=== PATIENT | male | born 1965 | race Caucasian/White ===

== ENCOUNTER 2016-12-07 18:13 | Emergency (ER) | payer OTHER ==
[2016-12-07 18:35] VITALS: BP 137/71
--- NOTE | 2016-12-07 20:14 | UC ---
Throat Pain/Nasal Chet HPI - HPI Summary HPI Summary: 51 y/o male presents to the urgent care c/o of sore throat with b/l ear pain for the past 10 days. But now his symptoms are getting worse. He states he has mild fever since yesterday and producing green nasal discharge and coughing green phlegm. Patient denies SOB, chest pain, N/V/D. He maggyo reports her grand daughter has been Dx with pharyngitis. - History of Current Complaint Chief Complaint: UCRespiratory Stated Complaint: SORE THROAT, AND EAR ACHE Time Seen by Provider: 12/07/16 19:52 Hx Obtained From: Patient Onset/Duration: Gradual Onset, Lasting Days, Still Present Severity: Moderate Pain Intensity: 5 Pain Scale Used: 0-10 Numeric Cough: Productive - green phlegm Associated Signs & Symptoms: Positive: Dysphagia, Hoarseness, Sinus Discomfort, Nasal Discharge, Fever. Negative: Vomiting, Rash - Epiglottits Risk Factors Epiglottis Risk Factors: Negative - Allergies/Home Medications Allergies/Adverse Reactions: Allergies Allergy/AdvReac Type Severity Reaction Status Date / Time No Known Allergies Allergy Verified 12/07/16 18:34 PMH/Surg Hx/FS Hx/Imm Hx Previously Healthy: Yes Other History Of: Hepatitis C - Surgical History Surgical History: Yes Surgery Procedure, Year, and Place: jesus inside [facility] - - Family History Known Family History: Positive: Diabetes, Other - lung cancer - Social History Occupation: Employed Full-time Lives: With Family Alcohol Use: Occasionally Substance Use Type: Marijuana Substance Use Comment - Amount & Last Used: RARE Smoking Status (MU): Never Smoked Tobacco - Immunization History Most Recent Influenza Vaccination: FALL 2014 Most Recent Tetanus Shot: states up to date Review of Systems Constitutional: Fever Skin: Negative Eyes: Negative ENT: Sore Throat, Ear Ache, Nasal Discharge Respiratory: Cough - with green phlemg Cardiovascular: Negative Gastrointestinal: Negative Genitourinary: Negative Motor: Negative Neurovascular: Negative Musculoskeletal: Negative Neurological: Negative Psychological: Negative All Other Systems Reviewed And Are Negative: Yes Physical Exam Triage Information Reviewed: Yes Appearance: Well-Appearing, No Pain Distress, Well-Nourished, Obese Vital Signs: Initial Vital Signs Temp 98.1 F 12/07/16 18:33 Pulse 74 12/07/16 18:33 Resp 16 12/07/16 18:33 BP 137/71 12/07/16 18:33 Pulse Ox 98 12/07/16 18:33 Vital Signs Reviewed: Yes Eyes: Positive: Conjunctiva Clear ENT: Positive: Pharyngeal erythema - with exudate b/l, Nasal congestion, Nasal drainage, TM red - Left TM w/o light reflex, and red. RT TM unable to observed due to ear impacted with cerumen, Tonsillar swelling, Tonsillar exudate Dental Exam: Normal Neck exam: Normal Neck: Positive: Supple, Tenderness @ - anterior cervical lymph nodes Respiratory Exam: Normal Respiratory: Positive: Chest non-tender, Lungs clear, Normal breath sounds Cardiovascular Exam: Normal Cardiovascular: Positive: RRR, No Murmur, Pulses Normal Abdomen Description: Positive: Nontender, No Organomegaly, Soft Bowel Sounds: Positive: Present Musculoskeletal Exam: Normal Neurological Exam: Normal Psychological Exam: Normal Skin Exam: Normal Throat Pain/Nasal Course/Dx - Course Course Of Treatment: Sore throat with b/l ear pain: Hx obtaines, PE abnormal findings: ENT: Positive: Pharyngeal erythema - with exudate b/l, Tonsillar swelling, Tonsillar exudate, Nasal congestion, Nasal drainage, TM red - Left TM w/o light reflex, and red. RT TM unable to observed due to ear impacted with cerumen,. Rapid strep ordered. Result:negative. Patient Rx Ibuprofen to alleviate symptoms and Amoxicillin 875mg PO for Otitis Media. Patient given intructions on medication understood and agreed - Differential Dx/Diagnosis Differential Diagnosis/HQI/PQRI: Epiglottitis, Laryngitis, Otitis Media, Pharyngitis, Tonsillitis, URI Provider Diagnoses: viral pharyngitis, otitis media Discharge - Discharge Plan Condition: Stable Disposition: HOME Prescriptions: Amoxicillin (*) [Amoxicillin 875 MG (*)] 875 mg PO BID #20 tab Ibuprofen TAB* [Motrin TAB* 600 MG] 600 mg PO Q6H PRN #20 tab PRN Reason: Sore Throat Patient Education Materials: Pharyngitis (ED), Otitis Media (ED) Referrals: Non Staff,Doctor [Primary Care Provider] - [facility] [Outside] Additional Instructions: Please take medications as instructed . Please increase fluid intake and rest. If symptoms worsen please return to the urgent care or call the physician referral to make an appt with a Primary Care Doctor for further evaluation and treatment
[2016-12-07] MEDS ORDERED: Amoxicillin CAP* 500 MG PO ONE (21:06)
[2016-12-07] MEDS ORDERED: Ibuprofen TAB* 400 MG PO ONE (21:08)
== END 2016-12-07 21:18 | disposition home or self-care (01) ==
LOC: UCEAST 18:13
DX: J02.8 Acute pharyngitis due to other specified organisms (principal); H66.90 Otitis media, unspecified, unspecified ear; E66.9 Obesity, unspecified; Z86.19 Personal history of other infectious and parasitic diseases; H61.21 Impacted cerumen, right ear
CPT/HCPCS: 87651; 99212; A9270-GY; G0463

== ENCOUNTER → 2018-03-15 12:50 | Emergency (ER) | payer OTHER ==
[~2018-03-15 12:50] MED LIST: METHOCARBAMOL IVPB ONE; Methocarbamol* 100 MG/ML 10 ML VIAL IV ONE; Morphine INJ* 2 MG/ML 1 ML SYRINGE (TWO MG - NEW SYRINGE VERSION) ONE; Morphine INJ** 4 MG/ML 1 ML CARPUJECT IV ONE; NS 0.9% IVPB ONE; methylPREDNISolone 125 MG* 2 ML VIAL IV ONE; methylPREDNISolone 125 MG* 2 ML VIAL ONE
--- NOTE | 2018-03-15 14:33 | RAD ---
HISTORY: back pain COMPARISONS: None relevant TECHNIQUE: Multiple contiguous axial CT scans were obtained of the lumbar spine without intravenous contrast, with coronal and sagittal multiplanar reformations. FINDINGS: SPINAL CANAL: Evaluation of the central canal is limited on CT technique; however, there is no obvious canalicular mass or epidural hemorrhage. ALIGNMENT: The alignment is normal. VERTEBRAL BODIES: There is mild anterolateral marginal osteophyte formation. JOINTS: There is mild facet osteoarthritis along the lower lumbar spine. MUSCULATURE: Unremarkable INTERVERTEBRAL DISCS: There is diffuse loss of intervertebral disc height throughout the spine. AXIAL IMAGES: T10-T11: There is no osseous neural foraminal narrowing of central canal stenosis. T11-T12: There is no osseous neural foraminal or central canal stenosis. T12-L1: There is no osseous neural foraminal narrowing or central canal stenosis. L1-L2: There is no osseous neural foraminal narrowing or central canal stenosis. L2-L3: There is no osseous neural foraminal narrowing or central canal stenosis. L3-L4: There is no osseous neural foraminal narrowing or central canal stenosis. L4-L5: There is a broad-based central and right lateral recess disc protrusion measuring 0.5 cm in depth. There is moderate right neuroforaminal narrowing. There is no osseous central canal stenosis. L5-S1: There is a broad-based disc bulge. There is no osseous neural foraminal narrowing or central canal stenosis. SOFT TISSUES: The visualized soft tissues of the abdomen are unremarkable. OTHER: There is osteoarthritis of the SI joints bilaterally. IMPRESSION: 1. MILD DEGENERATIVE DISC DISEASE AND OSTEOARTHRITIS. 2. THERE IS A RIGHT-SIDED DISC PROTRUSION AT L4-L5. 3. THERE IS NO OSSEOUS CENTRAL CANAL STENOSIS.
--- NOTE | 2018-03-15 14:37 | ED ---
Back Pain - HPI Summary HPI Summary: 53-year-old male presents with back pain for the past couple months. He states it is gradually getting worse. He states he has numbness and tingling down his right leg. He states he has done PT and an exercise program seemed to help but then the pain got worse the past three months. He states he felt a pop today. He states he tried to contact to get an appointment but was unable to do so. He states he had an MRI a year to that showed splinal stenosis and osteoarthritis. He is taking multiple ibuprofen doses every day. The ibuprofen helps a little bit with pain. No urinary symptoms. He denies any loss of bowel or bladder. No fever. No saddle anesthesia. He states the pain is better when he is moving. - History of Current Complaint Chief Complaint: EDBackInjuryPain Stated Complaint: BACK PAIN Time Seen by Provider: 03/15/18 13:31 Pain Intensity: 10 - Allergies/Home Medications Allergies/Adverse Reactions: Allergies Allergy/AdvReac Type Severity Reaction Status Date / Time No Known Allergies Allergy Verified 03/15/18 13:19 PMH/Surg Hx/FS Hx/Imm Hx Endocrine/Hematology History: Denies: Hx Diabetes, Hx Thyroid Disease Cardiovascular History: Denies: Hx Hypertension Respiratory History: Denies: Hx Asthma, Hx Chronic Obstructive Pulmonary Disease (COPD) GI History: Denies: Hx Ulcer Neurological History: Denies: Other Neuro Impairments/Disorders - DENIES - Surgical History Surgery Procedure, Year, and Place: jesus inside R arm - - Immunization History Immunizations Up to Date: Yes Infectious Disease History: Yes Infectious Disease History: Reports: Hx Hepatitis Denies: Hx Clostridium Difficile, Hx Human Immunodeficiency Virus (HIV), Hx of Known/Suspected MRSA, Hx Shingles, Hx Tuberculosis, Hx Known/Suspected VRE, Hx Known/Suspected VRSA, History Other Infectious Disease, Traveled Outside the [place] in Last 30 Days - Family History Known Family History: Positive: Diabetes, Other - lung cancer - Social History Alcohol Use: Occasionally Substance Use Type: Reports: Marijuana Substance Use Comment - Amount & Last Used: RARE Smoking Status (MU): Never Smoked Tobacco Review of Systems Negative: Fever Negative: Chest Pain Negative: Shortness Of Breath Positive: Myalgia - back pain All Other Systems Reviewed And Are Negative: Yes Physical Exam Triage Information Reviewed: Yes Vital Signs On Initial Exam: Initial Vitals Temp Pulse Resp BP Pulse Ox 98.5 F 72 16 159/101 98 03/15/18 12:53 03/15/18 12:53 03/15/18 12:53 03/15/18 12:53 03/15/18 12:53 Vital Signs Reviewed: Yes Appearance: Positive: Well-Appearing Skin: Positive: Warm, Dry Head/Face: Positive: Normal Head/Face Inspection Eyes: Positive: Normal, Conjunctiva Clear ENT: Positive: Pharynx normal Respiratory/Lung Sounds: Positive: Clear to Auscultation, Breath Sounds Present Cardiovascular: Positive: Normal, RRR Musculoskeletal: Positive: Strength/ROM Intact - back pain, Other - tenderness back, greatest on right side, sensation grossly intact. good leg strength Neurological: Positive: Normal, Reflexes Intact - patella, Normal Gait Psychiatric: Positive: Normal Diagnostics - Vital Signs Vital Signs Temp Pulse Resp BP Pulse Ox 03/15/18 13:56 16 03/15/18 13:55 86 18 136/101 96 03/15/18 12:53 98.5 F 72 16 159/101 98 - Laboratory Lab Statement: Any lab studies that have been ordered have been reviewed, and results considered in the medical decision making process. - CT lumbar CT Interpretation: Positive (See Comments) - IMPRESSION: 1. MILD DEGENERATIVE DISC DISEASE AND OSTEOARTHRITIS. 2. THERE IS A RIGHT-SIDED DISC PROTRUSION AT L4 -L5. 3. THERE IS NO OSSEOUS CENTRAL CANAL STENOSIS. CT Interpretation Completed By: Radiologist Back Pain Course/Dx - Course Course Of Treatment: 53-year-old male presents with back pain for the past couple months. He states it is gradually getting worse. He states he has numbness and tingling down his right leg. He states he has done PT and an exercise program seemed to help but then the pain got worse the past three months. He states he felt a pop today. He states he tried to contact to get an appointment but was unable to do so. He states he had an MRI a year to that showed splinal stenosis and osteoarthritis. He is taking multiple ibuprofen doses every day. The ibuprofen helps a little bit with pain. No urinary symptoms. He denies any loss of bowel or bladder. No fever. No saddle anesthesia. He states the pain is better when he is moving. on exam has tenderness lower back and tenderness right side of back. pos SLR right. neurovascular intact. CT shows disk protrusion right side at L4-L5. discussed with patient that should follow up with neurosurgery. advised about the proper amount of ibuprofen as patient is taking to much. will give pain medication for at night. will give muscle relaxer. told to stretch. patient understand and agrees with plan. - Diagnoses Differential Diagnosis/HQI/PQRI: Positive: Herniated Disc, Strain, Sprain Provider Diagnoses: Back pain Discharge - Sign-Out/Discharge Documenting (check all that apply): Patient Departure - Discharge Plan Condition: Good Disposition: HOME Prescriptions: Cyclobenzaprine TAB* [Flexeril 10 MG TAB*] 10 mg PO TID PRN #21 tab PRN Reason: Pain methylPREDNISolone [Medrol Dosepak 4 MG*] 4 mg PO .SEE JOSE INSTRUCTION #1 packet oxyCODONE TAB* [Roxycodone TAB 5 mg*] 5 mg PO Q6H PRN #20 tab MDD 4 PRN Reason: Pain Patient Education Materials: Back Pain (ED) Referrals: Marc Aviles MD [Primary Care Provider] - Jr Bradford MD [Medical Doctor] - Additional Instructions: Follow directions on package for Medrol pack Take muscle relaxers three times a day, can only take if not operating heavy machinery Use ibuprofen or Tylenol for pain every 6 hours, use oxycodone at night every 6 hours for pain ice/heat area, move as much as possible Follow up with primary within 5 days follow up with neurosurgery Return to ED if develop any new or worsening symptoms - Billing Disposition and Condition Condition: GOOD Disposition: Home
[2018-03-15 15:17] VITALS: BP 144/95
== END | disposition home or self-care (01) ==
LOC: ED 12:50
DX: M54.9 Dorsalgia, unspecified (principal)
CPT/HCPCS: 72131; 96361; 96374; 96375; 99282; J2270; J2800; J2930

== ENCOUNTER 2018-03-16 17:47 | Inpatient (IN) | payer OTHER ==
[2018-03-16] MEDS ORDERED: HYDROmorphone INJ* 2 MG/ML CARPUJECT SYRINGE IV SLOW PU ONE (18:31)
[2018-03-16] MEDS ORDERED: Ketorolac INJ* 30 MG/ML 1 ML VIAL IV PUSH ONE (18:31)
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
[2018-03-16 20:34] LABS: ABS Basophils 0.1 10^3/ul (0-0.2); ABS Eosinophils 0 10^3/ul (0-0.6); ABS Lymphocytes 0.8 10^3/ul (1.0-4.8); ABS Neutrophils 13.8 10^3/ul (1.5-7.7); ABS Nucleated RBC 0 10^3/ul; Eosinophil % 0.1 % (0-6); Hematocrit 42 % (42-52); Hemoglobin 14.5 g/dl (14.0-18.0); Lymphocyte % 5.4 % (25-47); Mean Corpuscular HGB Conc 34 g/dl (31-36); Mean Corpuscular Hemoglobin 30 pg (27-31); Mean Corpuscular Volume 88 fL (80-94); Mean Platelet Volume 7.8 um3 (7.4-10.4); Nucleated Red Blood Cells % 0; Platelet Count 193 10^3/ul (150-450); Red Blood Count 4.82 10^6/ul (4.00-5.40); Red Cell Distribution Width 13 % (10.5-15); White Blood Count 15.8 10^3/ul (3.5-10.8)
[2018-03-16 20:42] LABS: INR 0.89 (0.77-1.02)
[2018-03-16 20:48] LABS: EGFR Non-African American 92.1 (>60)
[2018-03-16 23:09] LABS: Urine Appearance Clear; Urine Blood Negative (Negative); Urine Color Yellow; Urine Ketones Negative (Negative); Urine Protein Negative (Negative); Urine Specific Gravity 1.028 (1.010-1.030); Urine Urobilinogen Negative (Negative)
[2018-03-16] MEDS: HYDROmorphone INJ1* 1 MG/ML SYRINGE IV SLOW PU PRN (23:16)
--- NOTE | 2018-03-16 23:25 | HP ---
CC: Dr. Aviles HISTORY AND PHYSICAL: DATE OF ADMISSION: 03/16/18 PRIMARY CARE PROVIDER: Dr. Aviles CHIEF COMPLAINT: Right buttock and hip pain. HISTORY OF PRESENT ILLNESS: Mr. Jesus is a 53-year-old male who states over the last 2 months he h as had gradually worsening right buttock and lateral hip pain. He was diagnosed with osteoarthritis a nd thought that is what was going on. He states that yesterday, the day before admission he bent ove r to mushroom picker a shovel and felt a sudden and severe pop in his back. He had severe pain and therefore presented to the emergency room. He was treated with antispasmodics, steroids and narcotic pain med ications and with this he was feeling a little bit better, was able to leave the emergency room last evening. He got up this morning to go to work; however, once at work he was only able to stay there for a couple hours. He was having incredibly difficult time walking. The patient denies any weaknes s in his right leg, but does state that his toes and his medial calf feels somewhat tingly. The ashwini ent had a CT scan in the emergency room on 03/15/18 which revealed a right-sided disk protrusion at L 4-5. There was no osseous central canal stenosis noted. In the emergency room today the patient was treated with the piriformis injection. He states that it did help somewhat, however, he was still h aving significant pain. He describes the pain is being a constant severe toothache like pain. He st ates that he also feels throbbing. At times he does have radiation of pain down the leg. PAST MEDICAL HISTORY: 1. Spinal stenosis. 2. History of hepatitis C, status post treatment with interferon and ribavirin PAST SURGICAL HISTORY: Right arm surgery. MEDICATIONS: 1. Oxycodone 5 mg p.o. q.6 hours p.r.n. pain. 2. Medrol Dosepak as directed. 3. Ibuprofen 600 mg p.o. q.6 hours p.r.n. pain. 4. Flexeril 10 mg p.o. t.i.d. p.r.n. spasm. ALLERGIES: No known drug allergies. FAMILY HISTORY: Mom at the age of 67 of lung cancer. Dad is living, he is 74 and has coronary disease. SOCIAL HISTORY: The patient is a distant former smoker. He drinks alcohol rarely. He works on heavy equipment doing construction. He is . He has 2 children. He indicates that his , Desiree , is his healthcare proxy. REVIEW OF SYSTEMS: A complete 11-system review of systems is obtained. Pertinent positives and nega tives as per HPI and otherwise negative. PHYSICAL EXAMINATION GENERAL: The patient is a well-developed, middle aged male, seen lying in a stretcher, in no acute d istress. VITAL SIGNS: Blood pressure 129/79, pulse 62, respirations 18, temp 97.8, O2 sat 97% on room air. HEENT: Pupils are equal and round. Extraocular muscles are intact. Oropharynx is clear. Oral muco sa is moist. There is no submandibular, cervical, or supraclavicular adenopathy. Thyroid is not enl arged. No thyroid nodules noted. PULMONARY: Lungs are clear to auscultation bilaterally. CARDIAC: Normal S1, S2. Regular rate and rhythm. I do not appreciate any murmurs. ABDOMEN: Bowel sounds are present. Abdomen is soft, nontender, nondistended. MUSCULOSKELETAL: There is no cyanosis or clubbing of the digits. There is full active range of william on of all 4 extremities. NEURO: Cranial nerves II through XII are grossly intact. Sensation is intact to light touch through out. Strength is 5/5 and symmetric both upper and lower extremities bilaterally. PSYCH: The patient is alert. He is oriented x3. Affect appears appropriate. SKIN: Warm and dry. There are no rashes. LABORATORY STUDIES: WBC 15.8, hemoglobin 14.5, hematocrit 42, platelets 193, INR 0.89. Sodium 137, potassium 4.5, chloride 107, CO2 26. BUN 24, creatinine 0.87, glucose 119, calcium 8.9. ASSESSMENT AND PLAN: Mr. Jesus is a 53-year-old male who is identified to have L4-[address] n on CT of the lumbar spine today prior to admission who returns to the emergency room with complaint s of intractable pain. 1. Intractable pain. The patient did receive the piriforms injection by Dr. Collier in the emergenc y room. We will continue p.r.n. Dilaudid, Flexeril and ketorolac for pain control. My hope is that the patient's pain will be able to be brought under control and then he could be transitioned over to an oral regimen. I will start the Medrol Dosepak as of tomorrow. Dr. Collier spoke with neurosurge alondra CLINE, who recommended noncontrast MRI tomorrow. This has been ordered, however, MRI staff will like ly need to be called in for this. 2. DVT prophylaxis. According to the Adult Thrombosis Prophylaxis Risk Factor Assessment Guide, the patient had a total risk factor score of 2, making him at risk. Heparin 5000 units subcutaneous q.1 2 hours will be utilized as DVT prophylaxis. 3. Code status is full. TIME SPENT: Fifty five minutes was spent admitting this patient. [id number]/CPS #: [id number]
--- NOTE | 2018-03-17 00:09 | RAD ---
EXAM: MR Lumbar Spine Without Intravenous Contrast CLINICAL HISTORY: 53 years old, male; Pain; Low back pain; Patient HX: Pt had intermittent lower back pain since yesterday when bending over to tow picker a shovel. Pt unable to walk without pain. Pt denies loss of bowel or bladder control TECHNIQUE: Magnetic resonance images of the lumbar spine without intravenous contrast in multiple planes. COMPARISON: SP L WO CT SPINE LUMBAR W/O 03/15/2018 2:23 PM FINDINGS: Vertebrae: Unremarkable. No acute fracture. Spinal cord: Unremarkable. Normal signal. Soft tissues: Cysts in the left kidney largest one is measuring 20 mm. DISCS/SPINAL CANAL/NEURAL FORAMINA: L1-L2: Unremarkable. No significant disc disease. No stenosis. L2-L3: Unremarkable. No significant disc disease. No stenosis. L3-L4: Mild diffuse disc bulge without significant central spinal canal stenosis or neural foraminal narrowing. Bilateral facet joint arthropathy and ligamentum flavum hypertrophy. L4-L5: Diffuse disc bulge with mild central and moderate right paracentral disc protrusion causing moderate right lateral recess narrowing with abutment of the traversing right L5 nerve roots in the lateral recess, moderate right neural foraminal narrowing and mild left neural foraminal narrowing. Bilateral facet joint arthropathy and ligamentum flavum hypertrophy. L5-S1: Mild diffuse disc bulge, and bilateral facet joint arthropathy, without any significant central spinal spinal canal stenosis or right neural foraminal narrowing. Mild left neural foraminal narrowing. IMPRESSION: Multilevel disc disease as described above most marked at the level of L4-L5: Diffuse disc bulge with mild central and moderate right paracentral disc protrusion causing moderate right lateral recess narrowing with abutment of the traversing right L5 nerve roots in the lateral recess, moderate right neural foraminal narrowing and mild left neural foraminal narrowing.
[2018-03-17] MEDS: Cyclobenzaprine TAB* 10 MG PO PRN ×3 (06:15→20:58)
[2018-03-17] MEDS: Ketorolac INJ* 30 MG/ML 1 ML VIAL IV PUSH PRN ×2 (06:16→17:52)
[2018-03-17] MEDS: Heparin VIAL(*) 5000 UNITS/ML VIAL (FIVE THOUSAND) SUBCUT SCH ×2 (08:02→20:58)
[2018-03-17] MEDS: oxyCODONE TAB* 5 MG TAB PO PRN ×3 (08:02→17:53)
[2018-03-17] MEDS ORDERED: methylPREDNISolone TAB* 4 MG PO ONE (09:00)
--- NOTE | 2018-03-17 10:56 | CONSULT ---
Consult Consult: Neurosurgery Consult Date of Admission: 03/16/18 Date of Consult: 03/17/18 Reason for Consult: Herniated nucleus pulposus L4-5 right Referring Provider: Dr. Collier HPI: This is a 53 year old male with past medical history significant for back pain who [place] [facility] two days in a row for complaint of back pain radiating to the right lower extremity. He reports being diagnosed with lumbar stenosis approximately one year ago which was treated with physical therapy and exercise. Over the past month, he has experienced low back to right buttock pain which he was able to manage with ibuprofen and activity modification, exercise. He recently developed the current severe, radiating pain when bending forward to pick something up. He states that he felt a pop and immediately experienced pain. Initially he was able to ambulate well while sitting aggravated the pain. Now, he has difficulty ambulating secondary to severe pain and tingling in the RLE. He describes pain beginning in the low back, travelling to the right buttock and down the leg to the foot, tingling in the same distribution. He is most comfortable recumbent in bed with weight shifted to left side and right leg bent. He denies weakness of the lower extremities. Denies numbness and pain in the LLE. He was seen in the ED on 03/15/18, CT lumbar spine was obtained showing HNP L4-5 right, he was treated with medication and discharged home with flexeril, steroids and oxycodone. He was referred for outpatient neurosurgical evaluation. However, he was unable to manage the pain and returned to the ED on 03/16/18, MRI was obtained. Currently , the pain is improved while sitting in bed, worse with standing or walking. He has been treated with toradol, steroids, dilaudid, oxycodone and flexeril. Past Medical History: 1. Hepatitis C, treated Past Surgical History: 1. Fracture repair of right arm Home Medications: 1. Ibuprofen TAB* [Motrin TAB* 600 MG] 600 mg PO Q6H PRN #20 tab 12/07/16 [Rx Confirmed 03/16/18] 2. Cyclobenzaprine TAB* [Flexeril 10 MG TAB*] 10 mg PO TID PRN #21 tab 03/15/18 [Rx Confirmed 03/16/18] 3. methylPREDNISolone [Medrol Dosepak 4 MG*] 4 mg PO .SEE JOSE INSTRUCTION #1 packet 03/15/18 [Rx Confirmed 03/16/18] 4. oxyCODONE TAB* [Roxycodone TAB 5 mg*] 5 mg PO Q6H PRN #20 tab MDD 4 03/15/18 [Rx Confirmed 03/16/18] Allergies: No known allergies Social History: This patient lives at home in [place] with his and children. He works as an equipment maintenance technician. He does not smoke, occasionally consumes alcohol, no recreational drugs. ROS: Full ROS completed, pertinent findings stated in HPI and all others negative. Physical Exam: Vital Signs: Temp Pulse Resp BP Pulse Ox 98.5 F 54 14 132/83 100 03/17/18 07:27 03/17/18 07:27 03/17/18 08:15 03/17/18 07:27 03/17/18 07:27 General: Alert and comfortably recumbent in bed. NAD. HEENT: Head is normocephalic and atraumatic. PERRL, EOMI, sclerae anicteric. Gross hearing intact. Moist mucus membranes. Neck: Supple and symmetric. CV: Pedal pulses 2+ and equal. Regular rate and rhythm. Lungs: Breathing is nonlabored and lungs are clear. Abdomen: The abdomen is mildly rounded. Nontender, nondistended. Normoactive bowel sounds. Neuro: Speech is clear. CN II-XII intact. Strength bilateral lower extremities 5 /5. Sensation intact throughout. SLR of RLE and LLE positive for RLE pain. Extremities: No edema Imagin. CT lumbar spine on 03/15/18 shows HNP L4-5 right. 2. MRI lumbar spine on 03/16/18 shows large HNP L4-5 right. Assessment and Plan: This is a 53 year old male with HNP L4-5 on the right complaining of right lumbar radiculopathy consistent with this diagnosis. No weakness or numbness appreciated on exam, neuro intact. MRI of the lumbar spine was reviewed with the patient. Treatment options were discussed including surgery with lumbar discectomy L4-5 right. Pain is currently improved while taking multiple medications in the hospital. He would like to discuss the surgical option with his . This case was discussed with Dr. Clements and Dr. Bartlett.
[2018-03-17] MEDS: HYDROmorphone INJ1* 1 MG/ML SYRINGE IV SLOW PU PRN (14:00)
[2018-03-17] MEDS ORDERED: Docusate CAP* 100 MG PO PRN (15:46)
[2018-03-17] MEDS ORDERED: Polyethylene Glycol 3350* 17 GM PACKET PO PRN (15:51)
--- NOTE | 2018-03-17 15:56 | PN ---
Subjective Date of Service: 03/17/18 Interval History: Patient seen today doing well. NO acute disease taking po well. complain of increase leg and back pain. Discussed with Neurosurgery, schedule for OR on Monday and patient is aware and verbally consented Objective Active Medications: Cyclobenzaprine HCl (Flexeril Tab*) 10 mg PO TID PRN PRN Reason: SPASMS Last Admin: 03/17/18 14:23 Dose: 10 mg Docusate Sodium (Colace Cap*) 200 mg PO DAILY PRN PRN Reason: CONSTIPATION Heparin Sodium (Porcine) (Heparin Vial(*)) 5,000 units SUBCUT Q12HR KEY Last Admin: 03/17/18 08:02 Dose: 5,000 units Hydromorphone HCl (Dilaudid Inj1s*) 0.5 mg IV SLOW PU Q3H PRN PRN Reason: PAIN Last Admin: 03/17/18 14:00 Dose: 0.5 mg Ketorolac Tromethamine (Toradol Inj*) 30 mg IV PUSH Q6H PRN PRN Reason: PAIN Last Admin: 03/17/18 06:16 Dose: 30 mg Oxycodone HCl (Roxycodone Tab*) 5 mg PO Q4H PRN PRN Reason: PAIN Last Admin: 03/17/18 14:00 Dose: 5 mg Polyethylene Glycol/Electrolytes (Miralax*) 17 gm PO DAILY PRN PRN Reason: CONSTIPATION Vital Signs - 8 hr 03/17/18 03/17/18 03/17/18 07:55 08:02 08:15 Temperature Pulse Rate Respiratory 16 18 14 Rate Blood Pressure (mmHg) O2 Sat by Pulse Oximetry 03/17/18 03/17/18 03/17/18 10:20 11:27 14:00 Temperature 98.3 F Pulse Rate 58 Respiratory 16 20 20 Rate Blood Pressure 126/72 (mmHg) O2 Sat by Pulse 99 Oximetry 03/17/18 14:23 Temperature Pulse Rate Respiratory 20 Rate Blood Pressure (mmHg) O2 Sat by Pulse Oximetry Oxygen Devices in Use Now: None Eyes: No Scleral Icterus, PERRLA Ears/Nose/Mouth/Throat: NL Teeth, Lips, Gums, Clear Oropharnyx Neck: NL Appearance and Movements; NL JVP, Trachea Midline Respiratory: Symmetrical Chest Expansion and Respiratory Effort, Clear to Auscultation Cardiovascular: NL Sounds; No Murmurs; No JVD Abdominal: NL Sounds; No Tenderness; No Distention Extremities: No Edema, - - decrease tone due to pain RLE. otherwsie sensation intact Neurological: Alert and Oriented x 3 Result Diagrams: 03/16/18 20:25 03/16/18 20:25 Assess/Plan/Problems-Billing Assessment: 53 year old male here for acute low back pain found to have L4-L5 herniated disc with mild to moderate central bulging. schedule for surgery on Monday and being medicated for his pain - Patient Problems (1) Lumbar radiculopathy, acute Current Visit: Yes Status: Acute Code(s): M54.16 - RADICULOPATHY, LUMBAR REGION SNOMED Code(s): 927337090 Comment: - Currently on pain medication PRN with IV dilaudid, toradol and po percocet - Will add colace and prn miralax - For surgery on monday by neurosurgery (2) DVT prophylaxis Current Visit: Yes Status: Acute Code(s): [id number] - SNOMED Code(s): 316565818 Comment: [facility]
[2018-03-17] MEDS: Docusate CAP* 100 MG PO SCH (16:18)
[2018-03-18] MEDS: oxyCODONE TAB* 5 MG TAB PO PRN ×2 (01:23→09:52)
[2018-03-18] MEDS: Ketorolac INJ* 30 MG/ML 1 ML VIAL IV PUSH PRN ×3 (01:26→16:18)
[2018-03-18] MEDS: HYDROmorphone INJ1* 1 MG/ML SYRINGE IV SLOW PU PRN ×6 (03:40→21:06)
[2018-03-18] MEDS: Docusate CAP* 100 MG PO SCH (08:22)
[2018-03-18] MEDS: Heparin VIAL(*) 5000 UNITS/ML VIAL (FIVE THOUSAND) SUBCUT SCH ×2 (08:23→19:37)
[2018-03-18] MEDS ORDERED: oxyCODONE TAB* 5 MG TAB PO PRN ×2 (13:26)
--- NOTE | 2018-03-18 13:30 | PN ---
Subjective Date of Service: 03/18/18 Interval History: Patient seen this morning. He is still in pain. Wax and wane. No nausea or vomit. For OR in am Family History: Unchanged from Admission Objective Active Medications: Cyclobenzaprine HCl (Flexeril Tab*) 10 mg PO TID PRN PRN Reason: SPASMS Last Admin: 03/17/18 20:58 Dose: 10 mg Docusate Sodium (Colace Cap*) 200 mg PO DAILY KEY Last Admin: 03/18/18 08:22 Dose: 200 mg Heparin Sodium (Porcine) (Heparin Vial(*)) 5,000 units SUBCUT Q12HR KEY Last Admin: 03/18/18 08:23 Dose: 5,000 units Hydromorphone HCl (Dilaudid Inj1s*) 0.5 mg IV SLOW PU Q3H PRN PRN Reason: PAIN Last Admin: 03/18/18 11:42 Dose: 0.5 mg Ketorolac Tromethamine (Toradol Inj*) 30 mg IV PUSH Q6H PRN PRN Reason: PAIN Last Admin: 03/18/18 09:52 Dose: 30 mg Oxycodone HCl (Roxycodone Tab*) 5 mg PO Q4H PRN PRN Reason: PAIN - MILD TO MODERATE Polyethylene Glycol/Electrolytes (Miralax*) 17 gm PO DAILY PRN PRN Reason: CONSTIPATION Vital Signs - 8 hr 03/18/18 03/18/18 03/18/18 05:54 07:20 08:23 Temperature 97.3 F Pulse Rate 68 Respiratory 16 16 20 Rate Blood Pressure 142/95 (mmHg) O2 Sat by Pulse 99 Oximetry 03/18/18 03/18/18 03/18/18 09:49 09:52 10:22 Temperature Pulse Rate Respiratory 18 16 18 Rate Blood Pressure (mmHg) O2 Sat by Pulse Oximetry 03/18/18 03/18/18 11:42 13:18 Temperature Pulse Rate Respiratory 18 16 Rate Blood Pressure (mmHg) O2 Sat by Pulse Oximetry Oxygen Devices in Use Now: None Appearance: No acute distress. pleasant Eyes: No Scleral Icterus, - - EOMI Ears/Nose/Mouth/Throat: NL Teeth, Lips, Gums, Mucous Membranes Moist Neck: NL Appearance and Movements; NL JVP, Trachea Midline Respiratory: Symmetrical Chest Expansion and Respiratory Effort, Clear to Auscultation Cardiovascular: NL Sounds; No Murmurs; No JVD, RRR Abdominal: NL Sounds; No Tenderness; No Distention Extremities: No Edema, No Clubbing, Cyanosis Skin: No Rash or Ulcers Neurological: Alert and Oriented x 3 Result Diagrams: 03/16/18 20:25 03/16/18 20:25 Assess/Plan/Problems-Billing Assessment: 53 year old male here for acute low back pain found to have L4-L5 herniated disc with mild to moderate central bulging. schedule for surgery on Monday and being medicated for his pain - Patient Problems (1) Lumbar radiculopathy, acute Current Visit: Yes Status: Acute Code(s): M54.16 - RADICULOPATHY, LUMBAR REGION SNOMED Code(s): 528404173 Comment: - Currently on pain medication PRN with IV dilaudid, toradol and po oxycodone - I will increase oxycodone to 5 alternating to 10 mg Q 4hrs pending severity - Will add colace and prn miralax - For surgery on monday by neurosurgery (2) Constipation Current Visit: Yes Status: Acute Code(s): K59.00 - CONSTIPATION, UNSPECIFIED SNOMED Code(s): 06847850 Comment: on colace and prn miralax (3) DVT prophylaxis Current Visit: Yes Status: Acute Code(s): [id number] - SNOMED Code(s): 915336683 Comment: [facility]
[2018-03-18] MEDS: Cyclobenzaprine TAB* 10 MG PO PRN ×2 (16:17→23:05)
[2018-03-19] MEDS: Ketorolac INJ* 30 MG/ML 1 ML VIAL IV PUSH PRN (02:32)
[2018-03-19] MEDS: HYDROmorphone INJ1* 1 MG/ML SYRINGE IV SLOW PU PRN ×3 (03:48→22:45)
--- NOTE | 2018-03-19 07:15 | PN ---
Progress Note - Progress Note Date of Service: 03/18/18 SOAP: Subjective: []Patient seen and examined MRI confirms HNP L4-5 Right Patient still with severe radicular pain Objective: []SLR positive on RT MRI as noted above Assessment: []HNP L4-5 RT Plan: [] A proposed procedure of lumbar discectomy at L4-5 on the right was explained in detail. The risks of surgery to include bleeding, infection, numbness, weakness , and CSF leak were all discussed Surg is being scheduled for 03/19
[2018-03-19] MEDS: Heparin VIAL(*) 5000 UNITS/ML VIAL (FIVE THOUSAND) SUBCUT SCH (07:34)
[2018-03-19] MEDS: Docusate CAP* 100 MG PO SCH (07:34)
[2018-03-19] MEDS ORDERED: Thrombin 5,000 UNITS* 1 APPLIC KIT - topical use - TOPICAL ONE (10:11)
[2018-03-19] MEDS ORDERED: Lidocain 1% EPI 1:100,000 * 30 ML MDV ONE (10:11)
[2018-03-19] MEDS ORDERED: Bacitracin IV* 50,000 UNITS INJ ONE (10:12)
[2018-03-19] MEDS ORDERED: ceFAZolin 2 GM in NS PREMIX(*) 2 GM/100 ML BAG IVPB ONE ×2 (10:28→10:46)
[2018-03-19] MEDS ORDERED: Midazolam* 1 MG/ML 5 ML VIAL (5 MG) ONE (10:47)
[2018-03-19] MEDS ORDERED: fentaNYL* 50 MCG/ML 2 ML VIAL (100 MCG VIAL) ONE ×2 (10:47→11:17)
[2018-03-19] MEDS ORDERED: Ondansetron INJ* 2 MG/ML VIAL ONE (11:21)
[2018-03-19] MEDS ORDERED: DiMENhydriNATE IV* 50 MG/ML VIAL ONE (11:21)
[2018-03-19] MEDS ORDERED: Dexamethasone IV* 4 MG/ML 1 ML (4 MG) ONE (11:21)
[2018-03-19] MEDS ORDERED: Propofol* 10 MG/ML 20 ML BTL IV PUSH ONE (11:21)
[2018-03-19] MEDS ORDERED: Lidocaine 2% PF * 5 ML VIAL ONE (11:21)
[2018-03-19] MEDS ORDERED: Succinylcholine* 20 MG/ML 10 ML VIAL ONE (11:21)
[2018-03-19] MEDS ORDERED: DiMENhydriNATE IV* 50 MG/ML VIAL IV PUSH PRN (11:31)
[2018-03-19] MEDS ORDERED: oxyCODONE/Acetamin 5/325 MG* TAB PO PRN (11:31)
[2018-03-19] MEDS ORDERED: HYDROmorphone INJ1* 1 MG/ML SYRINGE IV PRN (11:31)
[2018-03-19] MEDS ORDERED: Naloxone* 0.4 MG/ML 1 ML VIAL IV PRN (11:31)
[2018-03-19] MEDS ORDERED: Zolpidem TAB* 10 MG PO PRN (12:16)
[2018-03-19] MEDS ORDERED: Magnesium Hydroxide LIQ* 30 ML UDC PO PRN ×2 (12:16→15:43)
[2018-03-19] MEDS ORDERED: Acetaminophen TAB* 325 MG PO PRN (12:16)
[2018-03-19] MEDS ORDERED: Ondansetron INJ* 2 MG/ML VIAL IV PRN (12:16)
--- NOTE | 2018-03-19 13:02 | RAD ---
INDICATION: Lumbar discectomy L4-L5 COMPARISON: Comparison is made with a prior MRI of the lumbar spine from March 16, 2018. TECHNIQUE: 2 cross table lateral films of the lumbar spine were obtained in the operating room. FINDINGS: There are surgical instruments which project posteriorly at the L5-S1 level. IMPRESSION: INTRAOPERATIVE CONTROL FILMS.
[2018-03-19] MEDS ORDERED: HYDROmorphone INJ1* 1 MG/ML SYRINGE ONE (14:14)
[2018-03-19] MEDS ORDERED: oxyCODONE/Acetamin 5/325 MG* TAB ONE (14:14)
--- NOTE | 2018-03-19 15:35 | PN ---
Subjective Date of Service: 03/19/18 Interval History: Patient seen and examined at bedside. Denies fever, chills, shortness of breath , chest discomfort, N/V/D. Pt states that he has not moved his bowels in several days. Reports that the pain in his right LE has resolved, but he is having incision pain. Family History: Unchanged from Admission Social History: Unchanged from Admission Past Medical History: Unchanged from Admission Objective Active Medications: Acetaminophen (Tylenol Tab*) 650 mg PO Q4H PRN Reason: PAIN Hydrocodone Bitart/Acetaminophen ([place] 5-325 Tab*) 2 tab PO Q4H PRN Reason: PAIN Cyclobenzaprine HCl (Flexeril Tab*) 10 mg PO TID PRN Reason: PAIN Docusate Sodium (Colace Cap*) 200 mg PO DAILY KEY Hydromorphone HCl (Dilaudid Inj1s*) 0.5 mg IV SLOW PU Q3H PRN Reason: PAIN Lactated Ringer's (Lactated Ringers 1000 Ml Bag*) 1,000 mls @ 75 mls/hr IV .per rate KEY Magnesium Hydroxide (Milk Of Magnesia Liq*) 30 ml PO DAILY PRN Reason: CONSTIPATION Ondansetron HCl (Zofran Inj*) 4 mg IV Q6H PRN Reason: NAUSEA/VOMITING Polyethylene Glycol/Electrolytes (Miralax*) 17 gm PO DAILY PRN Reason: CONSTIPATION Zolpidem Tartrate (Ambien Tab*) 10 mg PO BEDTIME PRN Reason: INSOMNIA Vital Signs - 8 hr 03/19/18 03/19/18 03/19/18 07:45 09:25 09:32 Temperature Pulse Rate Respiratory 16 16 16 Rate Blood Pressure (mmHg) O2 Sat by Pulse Oximetry 03/19/18 03/19/18 03/19/18 12:25 12:30 12:31 Temperature 97.3 F Pulse Rate 77 92 90 Respiratory 7 25 15 Rate Blood Pressure 139/97 158/101 (mmHg) O2 Sat by Pulse 95 94 98 Oximetry 03/19/18 03/19/18 03/19/18 12:35 12:45 13:00 Temperature Pulse Rate 89 68 67 Respiratory 14 14 14 Rate Blood Pressure 135/93 149/97 154/101 (mmHg) O2 Sat by Pulse 88 94 98 Oximetry 03/19/18 03/19/18 03/19/18 13:15 13:30 13:45 Temperature 97.3 F Pulse Rate 61 61 68 Respiratory 13 8 18 Rate Blood Pressure 162/106 128/88 158/108 (mmHg) O2 Sat by Pulse 97 95 96 Oximetry 03/19/18 03/19/18 03/19/18 14:00 14:15 14:19 Temperature Pulse Rate 63 67 Respiratory 14 18 18 Rate Blood Pressure 160/107 150/112 (mmHg) O2 Sat by Pulse 97 98 Oximetry 03/19/18 03/19/18 14:22 14:44 Temperature 98.3 F Pulse Rate 66 63 Respiratory 16 20 Rate Blood Pressure 143/101 150/93 (mmHg) O2 Sat by Pulse 94 98 Oximetry Oxygen Devices in Use Now: None Appearance: NAD, sitting up in the bed Ears/Nose/Mouth/Throat: Mucous Membranes Moist Respiratory: Symmetrical Chest Expansion and Respiratory Effort, Clear to Auscultation Cardiovascular: NL Sounds; No Murmurs; No JVD, RRR Abdominal: NL Sounds; No Tenderness; No Distention Extremities: No Edema Skin: No Rash or Ulcers Neurological: Alert and Oriented x 3, NL Muscle Strength and Tone Lines/Tubes/Other Access: Clean, Dry and Intact Peripheral IV - site benign Nutrition: Taking PO's Result Diagrams: 03/16/18 20:25 03/16/18 20:25 Assess/Plan/Problems-Billing Assessment: Mr. Jesus is a 53 year old male with PMH significant for Hep C here for acute low back pain found to have L4-L5 herniated disc with mild to moderate central bulging. He is S/P surgery with Dr. Clements today. - Patient Problems (1) Lumbar radiculopathy, acute Code(s): M54.16 - RADICULOPATHY, LUMBAR REGION SNOMED Code(s): 233998920 Comment: - S/P lumbar discectomy L4-5 on the right, POD - Management per Neurosurgery - Continue pain management (2) Constipation Code(s): K59.00 - CONSTIPATION, UNSPECIFIED SNOMED Code(s): 54914458 Comment: - Will start a bowel regimen (3) Leukocytosis Code(s): D72.829 - ELEVATED WHITE BLOOD CELL COUNT, UNSPECIFIED SNOMED Code(s) : 513579759 Comment: - Present on admission, UA negative and no respiratory symptoms - Will recheck labs in the AM (4) Hepatitis C Comment: - S/P treatment with interferon and ribavirin (5) DVT prophylaxis Code(s): IPA6735 - SNOMED Code(s): 229133700 Comment: - SCDs (6) Full code status Code(s): Z78.9 - OTHER SPECIFIED HEALTH STATUS SNOMED Code(s): 298557031 Status and Disposition: Inpatient. Disposition per Neurosurgery. Suspect he may be discharged in the AM. Attending: Cassy Spence
[2018-03-19] MEDS ORDERED: Senna TAB PO PRN (15:43)
[2018-03-19] MEDS: HYDROcodone/ACETAMIN 5-325 MG* 1 TAB PO PRN ×2 (15:44→20:18)
[2018-03-19] MEDS: Cyclobenzaprine TAB* 10 MG PO PRN (18:26)
[2018-03-19] MEDS: Magnesium Hydroxide LIQ* 30 ML UDC PO SCH (20:20)
[2018-03-20] MEDS: Cyclobenzaprine TAB* 10 MG PO PRN (05:20)
[2018-03-20] MEDS: HYDROcodone/ACETAMIN 5-325 MG* 1 TAB PO PRN (05:23)
[2018-03-20 05:30] LABS: ABS Basophils 0 10^3/ul (0-0.2); ABS Eosinophils 0 10^3/ul (0-0.6); ABS Lymphocytes 1.1 10^3/ul (1.0-4.8); ABS Monocytes 0.8 10^3/ul (0-0.8); ABS Neutrophils 9.9 10^3/ul (1.5-7.7); ABS Nucleated RBC 0 10^3/ul; Eosinophil % 0.3 % (0-6); Hematocrit 42 % (42-52); Hemoglobin 14.3 g/dl (14.0-18.0); Lymphocyte % 9.4 % (25-47); Mean Corpuscular HGB Conc 35 g/dl (31-36); Mean Corpuscular Hemoglobin 30 pg (27-31); Mean Corpuscular Volume 87 fL (80-94); Mean Platelet Volume 7.9 um3 (7.4-10.4); Nucleated Red Blood Cells % 0.3; Platelet Count 152 10^3/ul (150-450); Red Blood Count 4.76 10^6/ul (4.00-5.40); Red Cell Distribution Width 13 % (10.5-15); White Blood Count 11.8 10^3/ul (3.5-10.8)
[2018-03-20 07:31] VITALS: BP 124/81
[2018-03-20] MEDS: Docusate CAP* 100 MG PO SCH (08:18)
[2018-03-20] MEDS: Magnesium Hydroxide LIQ* 30 ML UDC PO SCH (08:18)
--- NOTE | 2018-03-20 09:23 | PN ---
Progress Note - Progress Note Date of Service: 03/20/18 SOAP: Subjective: [S/p lumbar discectomy L4-5 right, POD #1. Pre-op RLE pain improved. Complains of incisional pain and low back muscle spasms. Ambulating well. Eating and drinking without nausea. Pain well controlled. Denies fever, chills and headache.] Objective: [ Vital Signs: Temp Pulse Resp BP Pulse Ox 98.0 F 59 16 124/81 99 03/20/18 07:18 03/20/18 07:18 03/20/18 08:20 03/20/18 07:18 03/20/18 07:18 General: Alert and sitting in chair, NAD Neuro: Motor and sensory intact. Incision: Intact and dressing in place. No swelling. ] Assessment: [Satisfactory post-op course. Plan: [1. Discharge home 2. Discharge instructions discussed.]
--- NOTE | 2018-03-20 09:55 | PN ---
Subjective Date of Service: 03/20/18 Interval History: Patient seen and examined at bedside. Denies fever, chills, shortness of breath , chest discomfort, N/V/D. Pt states that he continues to have constipation, but doesn't feel uncomfortable and is passing flatus. He states that his right LE pain has resolved. He reports incisional pain that is controlled with pain medication. Family History: Unchanged from Admission Social History: Unchanged from Admission Past Medical History: Unchanged from Admission Objective Active Medications: Acetaminophen (Tylenol Tab*) 650 mg PO Q4H PRN Reason: PAIN Hydrocodone Bitart/Acetaminophen ([place] 5-325 Tab*) 2 tab PO Q4H PRN Reason: PAIN Cyclobenzaprine HCl (Flexeril Tab*) 10 mg PO TID PRN Reason: PAIN Docusate Sodium (Colace Cap*) 200 mg PO DAILY KEY Hydromorphone HCl (Dilaudid Inj1s*) 0.5 mg IV SLOW PU Q3H PRN Reason: PAIN Lactated Ringer's (Lactated Ringers 1000 Ml Bag*) 1,000 mls @ 75 mls/hr IV .per rate KEY Magnesium Hydroxide (Milk Of Magnesia Liq*) 30 ml PO BID KEY Magnesium Hydroxide (Milk Of Magnesia Liq*) 30 ml PO BID PRN Reason: CONSTIPATION Ondansetron HCl (Zofran Inj*) 4 mg IV Q6H PRN Reason: NAUSEA/VOMITING Polyethylene Glycol/Electrolytes (Miralax*) 17 gm PO DAILY PRN Reason: CONSTIPATION Senna (Senokot Tab*) 1 tab PO BEDTIME PRN Reason: CONSTIPATION Zolpidem Tartrate (Ambien Tab*) 10 mg PO BEDTIME PRN Reason: INSOMNIA Vital Signs - 8 hr 03/20/18 03/20/18 03/20/18 03:09 05:20 05:23 Temperature 97.8 F Pulse Rate 57 Respiratory 18 16 16 Rate Blood Pressure 137/90 (mmHg) O2 Sat by Pulse 100 Oximetry 03/20/18 03/20/18 03/20/18 07:18 07:24 08:20 Temperature 98.0 F Pulse Rate 59 Respiratory 18 16 16 Rate Blood Pressure 124/81 (mmHg) O2 Sat by Pulse 99 Oximetry Oxygen Devices in Use Now: None Appearance: NAD, sitting up in bed Ears/Nose/Mouth/Throat: Mucous Membranes Moist Respiratory: Symmetrical Chest Expansion and Respiratory Effort, Clear to Auscultation Cardiovascular: NL Sounds; No Murmurs; No JVD, RRR Abdominal: NL Sounds; No Tenderness; No Distention Extremities: No Edema Skin: No Rash or Ulcers Neurological: Alert and Oriented x 3, NL Muscle Strength and Tone Lines/Tubes/Other Access: Clean, Dry and Intact Peripheral IV - site benign Nutrition: Taking PO's Result Diagrams: 03/20/18 04:48 03/16/18 20:25 Assess/Plan/Problems-Billing Assessment: Mr. Jesus is a 53 year old male with PMH significant for Hep C here for acute low back pain found to have L4-L5 herniated disc with mild to moderate central bulging. He is S/P surgery with Dr. Clements today. - Patient Problems (1) Lumbar radiculopathy, acute Code(s): M54.16 - RADICULOPATHY, LUMBAR REGION SNOMED Code(s): 593535383 Comment: - S/P lumbar discectomy L4-5 on the right, POD #1 - Management per Neurosurgery - Continue pain management (2) Constipation Code(s): K59.00 - CONSTIPATION, UNSPECIFIED SNOMED Code(s): 13760385 Comment: - Continue bowel regimen (3) Leukocytosis Code(s): D72.829 - ELEVATED WHITE BLOOD CELL COUNT, UNSPECIFIED SNOMED Code(s) : 996411186 Comment: - Present on admission, UA negative and no respiratory symptoms - Improving, suspect leukomoid reaction (4) Hepatitis C Comment: - S/P treatment with interferon and ribavirin (5) DVT prophylaxis Code(s): UNS9686 - SNOMED Code(s): 901630685 Comment: - SCDs (6) Full code status Code(s): Z78.9 - OTHER SPECIFIED HEALTH STATUS SNOMED Code(s): 308842772 Status and Disposition: Inpatient. Disposition per Neurosurgery. Suspect discharge later today.
--- NOTE | 2018-03-21 03:05 | DS ---
DISCHARGE SUMMARY: DATE OF ADMISSION: 03/16/18 DATE OF DISCHARGE: 03/20/18 ATTENDING PHYSICIAN: Dr. Clements.* (DICTATED BY MARLYN HDZ) DISCHARGE DIAGNOSES: Herniated nucleus pulposus L4-5 on the right. SPECIAL PROCEDURES: Lumbar diskectomy L4-5 on the right. HOSPITAL COURSE: This 53-year-old male is seen in the [facility] emergency department on 2 consecutive days complaining of severe low back pain and right-sided lumbar radiculopathy. CT scan was obtained at the first emergency room visit showing a herniated disk at L4-5 on the right. He was prescribed pain medications and muscle relaxants prior to discharge home and referred for followup with neurosurgery. The following day he again presented to the emergency room and was admitted for further evaluation and treatment of the lumbar radiculopathy. MRI of the lumbar spine was obtained on 03/16/18 showing a large herniated disk at L4-5 on the right. He had been admitted to the hospitalist service. Neurosurgery was consulted for surgical options. On 03/17, a proposed lumbar diskectomy at L4-5 on the right, operation was discussed with the patient, he wished to proceed with this option and was scheduled for surgery on 03/19/18. On 03/19/18, he was taken to the operating room where under general anesthesia a lumbar diskectomy at L4-5 on the right, operation was carried out with Dr. Clements. Postoperatively the right lower extremity pain had improved. He was ambulating independently and he was eating, drinking , and voiding without difficulty. Pain was well controlled with oral pain medications on the first postoperative day. He is discharged home to the care of his . DISCHARGE INSTRUCTIONS: Wound care and activity level were discussed with the patient and information on this was provided. DISCHARGE MEDICATIONS: 1. [place] 5/325 mg 1 to 2 tabs by mouth every 4 hours as needed. 2. Colace 200 mg by mouth every day. 3. Senokot tablet 1 tab by mouth at bedtime. 4. Flexeril 10 mg 1 tab by mouth up to 3 times daily as needed. FOLLOW UP: He will be seen in office in 10 days. MARLYN HDZ [id number]/[facility] #: [id number] HARRY
--- NOTE | 2018-03-22 00:21 | OP ---
DATE OF OPERATION: 03/19/18 - ROOM #332 DATE OF : 67 SURGEON: Dr. Luis Clements. ANESTHESIA: General. PRE-OP DIAGNOSIS: Herniated nucleus pulposus, L4-5 on the right. POST-OP DIAGNOSIS: Herniated nucleus pulposus, L4-5 on the right. OPERATIVE PROCEDURE: Lumbar diskectomy, L4-5 on the right with microdissection. DESCRIPTION OF PROCEDURE: After satisfactory general anesthesia was obtained, the patient was placed on the operating table in the prone position with the chest supported on Vikram frame and the back slightly flexed. The lumbar region was then clipped, prepped, and draped in a sterile manner for lumbar laminectomy and a skin incision outlined from L4 to L5. This incision was infiltrated with 1% Xylocaine with epinephrine after which it was turned down sharply to the level of the lumbar fascia. The fascia was divided along the spinous processes of L4 and L5 on the right side and the paraspinal musculature stripped away from these posterior elements utilizing the periosteal elevator and monopolar cautery. An intraoperative x-ray was obtained verifying proper interspace localization, after which a partial hemilaminectomy was carried out at this level by removing the inferior aspect of the L4 lamina and medial aspect of the facet complex with the combination of the Midas Orion drill and Kerrison rongeurs. This was carried superiorly until the attachment of the ligamentum flavum was taken down. Ligamentum flavum was then removed with the Kerrison. A generous foraminotomy was carried out over the L5 nerve root on this side. At this point of procedure, the operating microscope was brought into the field and the remainder of the procedure done under microscopic visualization. Projecting beneath the L5 nerve root was noted to be a subscapular disk herniation. An opening was made in the posterior longitudinal ligament and multiple fragments of disk material removed from beneath the nerve root. The disk space itself was then cleared of any loose disk material using pituitary forceps and curettes. It was felt that a satisfactory decompression had been achieved. After assuring adequate hemostasis, the wound was thoroughly irrigated after which a piece of Gelfoam was placed over the laminectomy defect. The fascia was reapproximated with 0 Vicryl suture. The subcutaneous tissue was closed with 3-0 Vicryl suture and the skin closed with skin clips. The estimated blood loss was less than 50 cc, and the final sponge, padding, and needle counts were correct. The patient was taken to the recovery room, extubated, and in stable condition. [id number]/[facility] #: [id number] [facility]
--- NOTE | 2018-03-28 08:40 | RAD ---
INDICATION: History of injury to the eye with metal. Assess for retained metallic foreign body at the orbits prior to MRI. COMPARISON: June 18, 2009 CT TECHNIQUE: AP and lateral views of the orbits were obtained. FINDINGS: No radiopaque foreign bodies are identified at the level of the orbits or visualized calvarium. Dental amalgam noted. IMPRESSION: No radiopaque orbital foreign bodies evident.
== END 2018-03-20 10:10 | disposition home or self-care (01) | DRG 310 ==
LOC: ED 17:47 → MED 20:44 → OBSVTOIN 20:44 → SSU 03-19 14:36
PROVIDERS: ADMIT Hospitalist; ATTEND Neurological Surgery
PROC: 0SB20ZZ Excision of Lumbar Vertebral Disc, Open Approach (ICD-10-PCS; principal; 2018-03-19 13:45)
DX: M51.16 Intervertebral disc disorders with radiculopathy, lumbar region (principal); M48.00 Spinal stenosis, site unspecified; D72.829 Elevated white blood cell count, unspecified; K59.00 Constipation, unspecified; Z86.19 Personal history of other infectious and parasitic diseases; Z79.1 Long term (current) use of non-steroidal anti-inflammatories (NSAID); Z79.891 Long term (current) use of opiate analgesic; Z79.899 Other long term (current) drug therapy; Z82.49 Family history of ischemic heart disease and other diseases of the circulatory system; Z80.1 Family history of malignant neoplasm of trachea, bronchus and lung; Z87.891 Personal history of nicotine dependence
CPT/HCPCS: 36415; 70030; 72100; 72148; 80048; 81003; 85025; 85610; 85730; 99284; A9270-GY; J0330; J0690; J1100; J1170; J1240; J1644; J1885; J2250; J2405; J2704; J3010; J7509